=== PATIENT | male | born 1960 | race Two or more races ===

== ENCOUNTER 2022-06-17 18:29 | Inpatient (IN) | payer OTHER ==
[~2022-06-17] VITALS: Ht 167.6 cm; Wt 79.8 kg
[2022-06-17] MEDS ORDERED: HUMALOG100 UNIT/1 (18:44)
[2022-06-17] MEDS ORDERED: LANTUS SOL100 UNIT/1 SQ (18:45)
[2022-06-17] MEDS ORDERED: GRALISE600 MG PO (18:45)
[2022-06-17] MEDS ORDERED: METFORMIN HCL1000 M2 PO (18:45)
[2022-06-17] MEDS ORDERED: GLIPIZIDE ER10 MG PO (18:45)
[2022-06-17] MEDS ORDERED: ZESTRIL5 MG PO (18:46)
[2022-06-17] MEDS ORDERED: AMLODIPINE-OLM1 EACH PO (18:46)
[2022-06-21] MEDS ORDERED: FAMOTIDINE20 MG PO (16:06)
[2022-06-21] MEDS ORDERED: HYDRODIURIL12.5 MG PO (16:06)
[2022-06-21] MEDS ORDERED: nifedipine xl PO (16:06)
[2022-06-21] MEDS ORDERED: INTESTINEX680 M1 PO (16:06)
[2022-06-21] MEDS ORDERED: FOLIC ACID1 MG PO (16:06)
[2022-06-21] MEDS ORDERED: GABAPENTIN800 MG PO (16:06)
[2022-06-21] MEDS ORDERED: zyvox PO (16:06)
[2022-06-21] MEDS ORDERED: ADULT ASPIRIN81 MG PO (16:06)
[2022-06-21] MEDS ORDERED: INTEGRA F CAPS1 EACH PO (16:06)
[2022-06-21] MEDS ORDERED: ABANEU-SL TABL1 EACH SL (16:06)
[2022-06-21] MEDS ORDERED: ATORVASTATIN CA20 MG PO (16:08)
== END 2022-06-21 18:30 | disposition home or self-care (01) | DRG 623 ==
LOC: ER 18:29 → MEDI 23:20
PROVIDERS: ADMIT Internal Medicine Geriatric Medicine; ATTEND Internal Medicine Geriatric Medicine
PROC: B44HZZZ Ultrasonography of Bilateral Lower Extremity Arteries (ICD-10-PCS; 2022-06-17)
PROC: BQ3MZZZ Magnetic Resonance Imaging (MRI) of Left Foot (ICD-10-PCS; 2022-06-18)
PROC: 0JBR0ZZ Excision of Left Foot Subcutaneous Tissue and Fascia, Open Approach (ICD-10-PCS; principal; 2022-06-19)
DX: E13.621 Other specified diabetes mellitus with foot ulcer (principal); E13.52 Other specified diabetes mellitus with diabetic peripheral angiopathy with gangrene; L97.528 Non-pressure chronic ulcer of other part of left foot with other specified severity; I96 Gangrene, not elsewhere classified; N17.8 Other acute kidney failure; S91.14 Puncture wound with foreign body of toe without damage to nail; E13.628 Other specified diabetes mellitus with other skin complications; L08.9 Local infection of the skin and subcutaneous tissue, unspecified; B95.61 Methicillin susceptible Staphylococcus aureus infection as the cause of diseases classified elsewhere; B95.1 Streptococcus, group B, as the cause of diseases classified elsewhere; E13.65 Other specified diabetes mellitus with hyperglycemia; I12.9 Hypertensive chronic kidney disease with stage 1 through stage 4 chronic kidney disease, or unspecified chronic kidney disease; E13.22 Other specified diabetes mellitus with diabetic chronic kidney disease; N18.9 Chronic kidney disease, unspecified; F17.200 Nicotine dependence, unspecified, uncomplicated; W45.0XXD Nail entering through skin, subsequent encounter; Z79.4 Long term (current) use of insulin; Z79.84 Long term (current) use of oral hypoglycemic drugs